=== PATIENT | female | born 1980 | race Caucasian/White ===

== ENCOUNTER → 2020-03-19 12:31 | Outpatient (BNVA) | payer OTHER, SELFPAY | PROVIDERS: PCP Nurse Practitioner Family; Visit Provider Surgery | DX: Z76.89 Persons encountering health services in other specified circumstances (principal) ==

== ENCOUNTER → 2020-03-19 12:31 | Outpatient (BNVA) | payer OTHER, SELFPAY | PROVIDERS: PCP Nurse Practitioner Family; Visit Provider Surgery ==

== ENCOUNTER → 2020-04-10 10:17 | Outpatient (BNVA) | payer OTHER, SELFPAY | PROVIDERS: PCP Nurse Practitioner Family; Visit Provider Surgery ==

== ENCOUNTER 2020-05-01 10:15 | Outpatient (REF) | payer OTHER, SELFPAY ==
[2020-05-03 15:12] LABS: H Pylori Breath Test NOT DETECTED (NOT DETECTED)
== END 2020-05-01 10:16 | disposition home or self-care (01) ==
LOC: HO.LNP 10:15
PROVIDERS: PCP Nurse Practitioner Family; Visit Provider Surgery
DX: Z01.818 Encounter for other preprocedural examination (principal); E66.01 Morbid (severe) obesity due to excess calories; R06.02 Shortness of breath; Z71.3 Dietary counseling and surveillance; Z68.41 Body mass index [BMI] 40.0-44.9, adult; Z79.899 Other long term (current) drug therapy; Z11.0 Encounter for screening for intestinal infectious diseases
CPT/HCPCS: 83013

== ENCOUNTER 2020-05-14 13:56 | Outpatient (REF) | payer OTHER, SELFPAY ==
--- NOTE | ~2020-05-14 | XR_ITS ---
EXAMINATION: XR CHEST CLINICAL INFORMATION: Shortness of breath COMPARISON: None TECHNIQUE: 2 views of the chest were obtained. FINDINGS: No significant abnormality is noted involving the heart, lungs, mediastinum, bony thorax or soft tissues. XR/XR chest 2V IMPRESSION: Unremarkable examination.
--- NOTE | 2020-05-14 14:07 | ECG_ITS ---
Test Reason : R06.02 SOB Blood Pressure : / mmHG Vent. Rate : 072 BPM Atrial Rate : 072 BPM P-R Int : 142 ms QRS Dur : 072 ms QT Int : 396 ms P-R-T Axes : 047 018 016 degrees QTc Int : 433 ms Normal sinus rhythm Low voltage QRS Borderline ECG No previous ECGs available Referred By: Samantha Nolasco Electronically Signed By:MIRNA ZAMAN
[2020-05-14 15:15] LABS: Basophils Percent Auto 0.2 % (0-2); MANUAL DIFF FLAG SCAN; PLT CLUMP 1; SCAN SMEAR FLAG 1
[2020-05-14 15:17] LABS: Eosinophils Absolute Auto 0.1 X10*3/uL (0.0-0.4); Eosinophils Percent Auto 1.5 % (0-4); Hematocrit 40.5 % (37-47); Imm Gran Abs Auto 0.03 X10*3/uL (0.00-0.03); Imm Gran Pct Auto 0.3 % (0.0-0.4); Lymphocytes Absolute Auto 2.2 X10*3/uL (1.2-4.9); Lymphocytes Percent Auto 24.3 % (20-40); Mean Corpuscular HGB Conc 34.6 g/dl (31.0-35.0); Mean Corpuscular Hemoglobin 30.3 pg (27.0-33.0); Mean Corpuscular Volume 87.7 fL (80-98); Mean Platelet Volume 10.5 fL (9.4-12.3); Monocytes Absolute Auto 0.5 X10*3/uL (0.1-1.2); Monocytes Percent Auto 5.6 % (2-11); Neutrophils Absolute Auto 6.1 X10*3/uL (2.0-8.3); Neutrophils Percent Auto 68.1 % (45-73); Platelet Count 287 X10*3/uL (160-400); Red Blood Count 4.62 X10*6/uL (4.20-5.50); Red Cell Distribution Width 12.9 % (11.0-16.0); White Blood Count 8.9 X10*3/uL (4.8-10.8)
[2020-05-14 15:19] LABS: Estimated Average Glucose 134 mg/dL; Hemoglobin A1c % 6.3 %
[2020-05-14 15:44] LABS: SLIDE REVIEW VERIFIED
[2020-05-14 16:09] LABS: Thyroid Stimulating Hormone 0.93 uIU/mL (0.32-4.0); Vitamin D 25-OH Total 22.8 ng/mL (>30)
[2020-05-14 16:13] LABS: Vitamin B12 949 pg/mL (200-900)
[2020-05-14 16:16] LABS: Alanine Aminotransferase 21 U/L (0-31); Albumin Level 4.4 g/dL (3.5-5.0); Alkaline Phosphatase 70 U/L (39-117); Anion Gap 17 (12-20); Aspartate Amino Transferase 21 U/L (5-31); Blood Urea Nitrogen 13 mg/dL (9-16); C Reactive Protein 1.87 mg/dL (< or = 0.50); Calcium 8.9 mg/dL (8.4-10.2); Carbon Dioxide 24 mmol/L (22-29); Chloride 102 mmol/L (96-108); Cholesterol 128 mg/dL; Estimated Glomerular Filt Rate > 60; Glucose Fasting 104 mg/dL (60-99); HDL Cholesterol 42 mg/dL; Iron 77 mcg/dL (30-160); LDL Cholesterol Calculated 74 mg/dl; Percent Iron Saturation 23 % (15-50); Sodium 139 mmol/L (135-145); Total Iron Binding Capacity 330 mcg/dL (228-428); Total Protein 7.4 g/dL (6.5-8.0); Triglycerides 64 mg/dL; Unsaturated Iron Binding 253 ug/dL
[2020-05-14 16:21] LABS: Bilirubin Total 0.5 mg/dL (0.0-1.0)
[2020-05-15 18:11] LABS: Calcium (PTHI) 9.3 mg/dL (8.6-10.2); PTHI 39 pg/mL (14-64)
[2020-05-17 05:41] LABS: Zinc 77 mcg/dL (60-130)
[2020-05-19 10:12] LABS: Vitamin A 35 mcg/dL (38-98)
[2020-05-19 12:12] LABS: Vitamin B1 <6 nmol/L (8-30)
== END 2020-05-14 13:57 | disposition home or self-care (01) ==
LOC: HO.LAB 13:56
PROVIDERS: PCP Nurse Practitioner Family; Visit Provider Surgery
DX: Z01.818 Encounter for other preprocedural examination (principal); K91.2 Postsurgical malabsorption, not elsewhere classified; R06.02 Shortness of breath; Z90.3 Acquired absence of stomach [part of]
CPT/HCPCS: 36415; 71046; 80053; 80061; 82306; 82607; 83036; 83540; 83970; 84425; 84443; 84590; 84630; 85025; 86140; 93005

== ENCOUNTER → 2020-05-15 08:06 | Outpatient (BNVA) | payer OTHER, SELFPAY | PROVIDERS: PCP Nurse Practitioner Family; Visit Provider Surgery ==

== ENCOUNTER → 2020-05-28 08:08 | Outpatient (BNVA) | payer OTHER, SELFPAY | PROVIDERS: PCP Nurse Practitioner Family; Visit Provider Dietitian, Registered | DX: E66.01 Morbid (severe) obesity due to excess calories (principal); Z68.41 Body mass index [BMI] 40.0-44.9, adult | CPT/HCPCS: 97802 ==

== ENCOUNTER → 2020-06-13 15:31 | Outpatient (BNVA) | payer OTHER, SELFPAY | PROVIDERS: PCP Nurse Practitioner Family; Visit Provider Surgery ==

== ENCOUNTER 2020-07-02 09:31 | Outpatient (REF) | payer OTHER, SELFPAY ==
[2020-07-07 06:41] LABS: Vitamin B1 21 nmol/L (8-30)
[2020-07-08 18:02] LABS: Vitamin A 59 mcg/dL (38-98)
== END 2020-07-02 09:32 | disposition home or self-care (01) ==
LOC: HO.LAB 09:31
PROVIDERS: PCP Nurse Practitioner Family; Visit Provider Surgery
DX: Z01.818 Encounter for other preprocedural examination (principal); E51.9 Thiamine deficiency, unspecified
CPT/HCPCS: 36415; 84425; 84590

== ENCOUNTER → 2020-07-04 14:00 | Outpatient (BNVA) | payer OTHER, SELFPAY | PROVIDERS: PCP Nurse Practitioner Family; Visit Provider Surgery ==

== ENCOUNTER → 2020-07-24 13:39 | Outpatient (BNVA) | payer OTHER, SELFPAY | PROVIDERS: PCP Nurse Practitioner Family; Visit Provider Surgery ==

== ENCOUNTER → 2020-08-21 14:48 | Outpatient (BNVA) | payer OTHER, SELFPAY | PROVIDERS: PCP Nurse Practitioner Family; Visit Provider Surgery ==

== ENCOUNTER → 2020-09-19 13:44 | Outpatient (BNVA) | payer OTHER, SELFPAY | PROVIDERS: PCP Nurse Practitioner Family; Visit Provider Physician Assistant ==

== ENCOUNTER → 2020-09-23 14:55 | Outpatient (BNVA) | payer OTHER, SELFPAY | PROVIDERS: PCP Nurse Practitioner Family; Visit Provider Surgery ==

== ENCOUNTER 2020-10-08 08:17 | Day surgery (SDC) | payer OTHER, SELFPAY ==
--- NOTE | 2020-09-23 15:40 | ECG_ITS ---
Test Reason : SOB Blood Pressure : / mmHG Vent. Rate : 066 BPM Atrial Rate : 066 BPM P-R Int : 148 ms QRS Dur : 080 ms QT Int : 394 ms P-R-T Axes : 042 026 031 degrees QTc Int : 413 ms Normal sinus rhythm Normal ECG When compared with ECG of 14-MAY-2020 14:24, No significant change was found Referred By: Samantha Nolasco Electronically Signed By:Paramjit Theodore
[2020-09-23 16:18] LABS: MANUAL DIFF FLAG NO
[2020-09-23 16:38] LABS: Basophils Percent Auto 0.1 % (0-2); Eosinophils Absolute Auto 0.1 X10*3/uL (0.0-0.4); Eosinophils Percent Auto 0.6 % (0-4); Hemoglobin 14.4 g/dl (12.0-16.0); Imm Gran Abs Auto 0.04 X10*3/uL (0.00-0.03); Imm Gran Pct Auto 0.4 % (0.0-0.4); Lymphocytes Absolute Auto 2.7 X10*3/uL (1.2-4.9); Lymphocytes Percent Auto 24.4 % (20-40); Mean Corpuscular HGB Conc 35.1 g/dl (31.0-35.0); Mean Corpuscular Hemoglobin 31.5 pg (27.0-33.0); Mean Corpuscular Volume 89.7 fL (80-98); Mean Platelet Volume 9.7 fL (9.4-12.3); Monocytes Absolute Auto 0.6 X10*3/uL (0.1-1.2); Monocytes Percent Auto 5.1 % (2-11); Neutrophils Absolute Auto 7.6 X10*3/uL (2.0-8.3); Neutrophils Percent Auto 69.4 % (45-73); Platelet Count 326 X10*3/uL (160-400); Red Blood Count 4.57 X10*6/uL (4.20-5.50); White Blood Count 10.9 X10*3/uL (4.8-10.8)
[2020-09-23 16:40] LABS: INTERNATIONAL NORM RATIO 1.1 (0.9-1.1)
[2020-09-23 16:43] LABS: Partial Thromboplastin Time 42.8 SEC (24.1-38.0)
[2020-09-23 16:50] LABS: Albumin Level 4.3 g/dL (3.5-5.0); Anion Gap 12 (12-20); Blood Urea Nitrogen 18 mg/dL (9-16); Calcium 9.8 mg/dL (8.4-10.2); Carbon Dioxide 25 mmol/L (22-29); Chloride 102 mmol/L (96-108); Estimated Glomerular Filt Rate > 60; Glucose Random 93 mg/dL (60-115); Potassium 4.1 mmol/L (3.3-5.1); Sodium 135 mmol/L (135-145)
[2020-09-23 17:02] LABS: Glucose Urine UA NEG (NEG); Leukocyte Esterase Urine NEG (NEG); Nitrite Urine NEG (NEG); PH 5.5 (5.0-8.0); Specific Gravity - Urine 1.025 (1.005-1.025); UACC Culture Trigger NO; Urine Blood TRACE (NEG); Urine Ketones NEG (NEG); Urine Protein NEG (NEG-TRACE)
[2020-09-23 17:07] LABS: Appearance Urine CLEAR; Color Urine YELLOW
[2020-09-23 17:08] LABS: UPreg QC Valid YES; Urine Pregnancy NEGATIVE (NEGATIVE)
[2020-09-23 17:14] LABS: Bacteria Urine 1+ /LPF; RBC Urine 0-2 /HPF (0); Squamous Epithelial Cell Urine 1+ /LPF; WBC Urine 0 /HPF (0-4)
--- NOTE | 2020-10-07 08:25 | HO.ANESPROP2 ---
Documented by User: Aliyah Robert NP 10/07/20 08:26 HPI - Anesthesia Eval Consult details Narrative: 40yo F for Gastrectomy Sleeve, EGD, Possible Diaphragmatic Hernia, Possible Ventral Hernia, Poss Open PMFSH Active Problems Active Problems: All Active Problems (Updated 10/03/20 @ 11:44 by Eden Pierce) BMI 40.0-44.9, adult (Acute) Pre-op evaluation (Acute) Shortness of breath (Acute) Adjustment disorder, unspecified (Acute) Vitamin A deficiency (Acute) Vitamin B1 deficiency (Acute) BMI 39.0-39.9,adult (Acute) Obesity (Acute) BMI 38.0-38.9,adult (Acute) Morbid obesity (Acute) Past Medical History Medical History COVID-19 vaccine series completed History of cardiac murmur as a child Hx MRSA infection Morbid obesity Seasonal asthma Family History Family History Mother Diabetes Hypertension Father Heart attack Hypertension Hyperlipidemia Brother Hypertension Brother Hypertension Son No problems noted. Daughter No problems noted. Paternal Aunt Breast cancer Paternal Grandfather Pancreatic cancer Maternal Grandmother Diabetes Surgical History Surgical History History of ankle surgery Hx of section Social History Social History (Updated 10/03/20 @ 11:39 by Eden Pierce, RN) Alcohol intake: current Alcohol intake frequency: holidays/special occasions only Patient Tobacco Use Status: Former Tobacco user Quit Date: 2018 Tobacco use type: Cigarette Advance Directives: No Advance Directives Information Provided: Yes Meds Allergies Allergy/AdvReac Type Severity Reaction Status Date / Time amoxicillin Allergy Severe Anaphylaxis Verified 10/08/20 09:03 Penicillins Allergy Severe Anaphylaxis Verified 10/08/20 09:03 Home Medications Medication Instructions Recorded Confirmed Last Taken Type albuterol sulfate 90 mcg/actuation 2 inh INHALATION Q4-6H PRN g 05/01/20 10/03/20 Unknown History aerosol inhaler multivitamin 1 tab PO DAILY 05/01/20 10/03/20 Unknown History Exam Exam Date and Time: October 07, 2020 0879 Pertinent Lab Results Pertinent Lab Results: Laboratory Tests 09/23/20 09/23/2021 15:00 15:42 15:42 WBC 10.9 H RBC 4.57 Hgb 14.4 Hct 41.0 MCV 89.7 MCH 31.5 MCHC 35.1 H RDW 13.0 Plt Count 326 MPV 9.7 Immature Gran % (Auto) 0.4 Neut % (Auto) 69.4 Lymph % (Auto) 24.4 [place] % (Auto) 5.1 Eos % (Auto) 0.6 Baso % (Auto) 0.1 Lymph # (Auto) 2.7 [place] # (Auto) 0.6 Eos # (Auto) 0.1 Baso # (Auto) 0.0 Abs Immat Gran (auto) 0.04 H Absolute Neuts (auto) 7.6 Absolute Nucleated RBC 0.000 Nucleated RBC % (auto) 0.0 PT 13.0 INR 1.1 APTT 42.8 H Sodium 135 Potassium 4.1 Chloride 102 Carbon Dioxide 25 Anion Gap 12 BUN 18 H Creatinine 0.74 Estim Creat Clear Calc TNP Estimated GFR > 60 Random Glucose 93 Calcium 9.8 D Albumin 4.3 Urine Color Urine Appearance Urine pH Ur Specific [place] Urine Protein Urine Glucose (UA) Urine Ketones Urine Blood Urine Nitrite Ur Leukocyte Esterase Urine RBC Urine WBC Ur Squamous Epith Cells Urine Bacteria Urine Test Blood Type Antibody Screen 09/23/20 09/23/20 09/23/20 15:43 15:43 15:47 WBC RBC Hgb Hct MCV MCH MCHC RDW Plt Count MPV Immature Gran % (Auto) Neut % (Auto) Lymph % (Auto) [place] % (Auto) Eos % (Auto) Baso % (Auto) Lymph # (Auto) [place] # (Auto) Eos # (Auto) Baso # (Auto) Abs Immat Gran (auto) Absolute Neuts (auto) Absolute Nucleated RBC Nucleated RBC % (auto) PT INR APTT Sodium Potassium Chloride Carbon Dioxide Anion Gap BUN Creatinine Estim Creat Clear Calc Estimated GFR Random Glucose Calcium Albumin Urine Color YELLOW Urine Appearance CLEAR Urine pH 5.5 Ur Specific [place] 1.025 Urine Protein NEG Urine Glucose (UA) NEG Urine Ketones NEG Urine Blood TRACE Urine Nitrite NEG Ur Leukocyte Esterase NEG Urine RBC 0-2 Urine WBC 0 Ur Squamous Epith Cells 1+ Urine Bacteria 1+ Urine Test NEGATIVE Blood Type A Positive Antibody Screen NEGATIVE Narrative Narrative: EKG 09/2020 Vent. Rate : 066 BPM ? ? Atrial Rate : 066 BPM ?? P-R Int : 148 ms? QRS Dur : 080 ms ? ? QT Int : 394 ms ? ? ? P-R-T Axes : 042 026 031 degrees ?? QTc Int : 413 ms ? Normal sinus rhythm Normal ECG When compared with ECG of 14-MAY-2020 14:24, No significant change was found Assessment and Plan Assessment Anesthesia Assessment: Chart Reviewed Documented by User: Norberto Del Rio MD 10/08/20 09:27 [facility] Past Medical History Medical History COVID-19 vaccine series completed History of cardiac murmur as a child Hx MRSA infection Morbid obesity Seasonal asthma Family History Family History Mother Diabetes Hypertension Father Heart attack Hypertension Hyperlipidemia Brother Hypertension Brother Hypertension Son No problems noted. Daughter No problems noted. Paternal Aunt Breast cancer Paternal Grandfather Pancreatic cancer Maternal Grandmother Diabetes Surgical History Surgical History History of ankle surgery Hx of section Social History Social History (Updated 10/03/20 @ 11:39 by Eden Pierce, JAS) Alcohol intake: current Alcohol intake frequency: holidays/special occasions only Patient Tobacco Use Status: Former Tobacco user Quit Date: 2018 Tobacco use type: Cigarette Advance Directives: No Advance Directives Information Provided: Yes Meds Allergies Allergy/AdvReac Type Severity Reaction Status Date / Time amoxicillin Allergy Severe Anaphylaxis Verified 10/08/20 09:03 Penicillins Allergy Severe Anaphylaxis Verified 10/08/20 09:03 Home Medications Medication Instructions Recorded Confirmed Last Taken Type albuterol sulfate 90 mcg/actuation 2 inh INHALATION Q4-6H PRN g 05/01/20 10/03/20 Unknown History aerosol inhaler multivitamin 1 tab PO DAILY 05/01/20 10/03/20 Unknown History Exam Airway Mallampati Class: II TM Dist: >3cm Neck ROM: Full
--- NOTE | 2020-10-07 12:02 | MHC.SHP ---
Pre-Procedural Eval Section A Date of Service: 10/07/20 Section B Chief Complaint: obesity Allergies: Allergies Allergy/AdvReac Type Severity Reaction Status Date / Time amoxicillin Allergy Severe Anaphylaxis Verified 10/06/20 10:08 Penicillins Allergy Severe Anaphylaxis Verified 10/06/20 10:09 Plan I have reviewed the history and physical and performed a pertinent physical examination on my patient. No changes have occurred unless specified.
[2020-10-08] VITALS (13 sets, daily range): BP systolic 116–136; BP diastolic 53–89; PULSE 68–83; RESP 16–18; TEMP 36.1–36.6; O2SAT 94–100; BMI 39.1
[2020-10-08 09:27] LABS: UPreg QC Valid YES; Urine Pregnancy NEGATIVE (NEGATIVE)
[2020-10-08 09:39] LABS: COVID-19 Test Negative (Negative)
[2020-10-08] MEDS: Lactated Ringers 1,000 ML 100 ML IVCONT ×3 (09:40→22:18)
--- NOTE | 2020-10-08 12:48 | P.BOP_ITS ---
Brief Operative Note Date of Service: 10/08/20 Pre-op diagnosis: Class 2 obesity, BMI 38.6 Post-op diagnosis: other (Same and hiatal hernia) Procedure: Laparoscopic sleeve gastrectomy, hiatal hernia repair, intraoperative endoscopy, and Stuart block Implants: covidien taqueria Surgeon: Samantha Nolasco MD Anesthesia: GETA Was an Second Officer used for this Procedure?: No Estimated blood loss (mL): 5 Pathology: other (Partial gastrectomy) Condition: stable Disposition: PACU
--- NOTE | 2020-10-08 12:49 | P.OP_ITS ---
Operative Note Operative Note Date of Service: 10/08/20 Narrative: Patient was brought into the operating room and placed on the operating room table in the supine position. General anesthesia was induced. Normal DVT prophylaxis was instituted and the patient received 2 grams of cefotetan preoperatively. The abdomen was then prepped and draped in the normal sterile fashion. A safety time-out was performed. A mixture of 1% lidocaine with epinephrine and ?% Marcaine plain was used to an esthetize the planned incision site in the left upper quadrant. A #11 scalpel was used to make a 5 mm left upper quadrant transverse incision through which a veress needle was placed. Three pops were heard going through the fascia. A saline drop test was used to confirm that the veress needle was intraabdominal. An optiview technique was then used to place a 5mm port in the left upper quadrant. A 5 mm 30 degree laproscope was then placed through this port and the abdominal cavity was surveyed and was normal. The patient was placed in reverse Trendelenburg positioning. A moisés liver retractor was then placed in the subxyphoid position and it was used to hold up the left lobe of the liver to the abdominal wall. This was secured to the bed using the liver retractor key. A MARYJO block was then performed for pain control on the right side of the abdomen. A 5 mm port was placed in the right upper quadrant near the falciform ligament. A 12 mm port was then placed in the mid epigastrium. One additional 5 mm port was placed in the left upper quadrant just to the left of the placement of the first port. I then performed a MARYJO block on the left side of the abdomen. I then removed the epigastric fat pad; there was a small anterior hiatal hernia noted. I reapproximated the left and right crura with a total of 2 stitches of 2-0 ethibond and a laparoscopic knot pusher. There was no residual hiatal hernia. I then opened up the angle of His. We then gained entry into the lesser sac about 4-5 cm from the pylorus. I had anesthesia place a 34 [place] orogastric tube into the distal antrum to use as a sizing tool for gastric pouch size. I divided the short gastric vessels up to the angle of His. We then started the creation of the gastric pouch by firing a 60 mm purple load endostapler up the stomach about 4-5 cm from the pylorus. We completed the creation of the gastric pouch using a total of 4 firings of a 60 mm purple load stapler. We had anesthesia remove the orogastric tube, then we clamped across the distal antrum using a fired 60 mm endostapler. We flattened the patient and then instilled normal saline surrounding the newly created staple line. I then performed an on-table endoscopy. I passed the gastroscopy into the posterior oropharynx and down the esophagus evaluating the esophageal mucosa which was normal. There was no evidence of hiatal hernia. I passed the gastroscope into the gastric pouch and insufflated the gastric pouch. There was healthy pink mucosa and no evidence of active bleeding. There was no evidence of leak on laparoscopy. I desufflated the gastric pouch and removed the endoscope. I removed the endostapler from the abdomen and suctioned the fluid from the left upper quadrant. I then removed the partial gastrectomy specimen through the epigastric 12 mm port site. I reapproximated the 12 mm port using a 0 maxon suture with a laparoscopic suture passer. I instilled local anesthetic into the fascial closure site and tied the suture down at a pressure of 8-10 mm of Hg. There was no residual fascial defect. We removed the liver retractor and the left upper quadrant 5 mm ports under direct visualization. There was no evidence of any active bleeding. I desufflated the abdomen through the last remaining port and removed the laparoscope and 5 mm port. We reapproximated all incisions with a 4-0 monocryl subcuticular stitch. We cleaned and dried the abdominal skin and applied dermabond skin glue. All count were correct at the end of the case. The patient was awake and in stable condition prior to extubation and transfer to the recovery room.
--- NOTE | 2020-10-08 12:50 | PM.DS ---
DS: Providers Provider Date of Service: 10/09/20 Date of admission: 10/08/2020 Date of discharge: 10/09/20 Primary care physician: Vashti Mata NP Admitting clinician: Samantha Nolasco Attending physician on admission: Samantha Nolasco Attending physician on discharge: Samantha Nolasco Discharging clinician: Samantha Nolasco DS: Diagnosis Discharge Diagnosis (1) Status post laparoscopic sleeve gastrectomy: Status: Acute (2) History of repair of hiatal hernia: Status: Acute (3) Class 2 obesity: Status: Acute DS: Medications Discharge Medications Home Medications: Home Medications Medication Instructions Recorded Confirmed albuterol sulfate 90 mcg/actuation 2 inh INHALATION Q4-6H PRN g 05/01/20 10/03/20 aerosol inhaler multivitamin 1 tab PO DAILY 05/01/20 10/03/20 Previous Rx's Medication Instructions Recorded acetaminophen 500 mg tablet 1,000 mg PO Q6H PRN #30 tab 09/23/20 (Tylenol Extra Strength) docusate sodium 100 mg capsule 100 mg PO BID #30 cap 09/23/20 (Colace) famotidine 20 mg tablet (Pepcid AC) 20 mg PO DAILY #30 tab 09/23/20 ondansetron HCl 4 mg tablet 4 mg PO Q6H PRN #30 tab 09/23/20 (Zofran) phentermine 37.5 mg capsule 37.5 mg PO DAILY #14 cap 09/23/20 simethicone 80 mg chewable tablet 80 mg PO TID-QID PRN #30 tab 09/23/20 (Gas Relief (simethicone)) DS: Summary Hospital Course Hospital Course: This is a 40-year-old lady who was admitted through same-day surgery on 10/08/2020 and underwent a laparoscopic sleeve gastrectomy with hiatal hernia repair on eventfully. She did well and was transferred to the surgical floor overnight. She was started on a stage II bariatric diet which she tolerated well. On postoperative day 1. The patient's vital signs and blood work were within normal range for postoperative day 1. Patient was advanced to stage III diet which she tolerated well and she was discharged home. Time spent discussing smoking cessation with patient: 3 to 10 minutes Status at Discharge Functional status at discharge: independent ambulation Overall status at discharge: patient is back to baseline Time Spent with Patient Time attestation: Total time spent providing and/or coordinating discharge services: Discharge coordination time: Less than 30 minutes Quality: Stroke Does the patient have a stroke diagnosis?: No Physical Exam Vital Signs: Vital Signs: Last Vital Signs Temp 97.0 F 10/08/20 12:45 Pulse 76 10/08/20 12:45 Resp 16 10/08/20 12:45 BP 130/77 10/08/20 12:45 Pulse Ox 99 10/08/20 12:45 Body Mass Index 39.1 DS: Data Data Completed and Pending Pending studies at discharge: Pending at discharge 10/08/20 12:14 Surgical [PTH] Routine Labs on day of discharge: Laboratory Results - last 24 hr 10/08/20 10/08/20 09:10 09:10 Urine Test NEGATIVE COVID-19 (MAUREEN) Negative COVID-19 Clin Com See Note Discharge Plan Discharge Patient Disposition: Home, Self-Care Referrals: Vashti Mata TRUCK SAFETY INSPECTOR [Primary Care Provider] - 1 Week Discharge Medications: Continued albuterol sulfate 90 mcg/actuation HFA aerosol inhaler 2 inh inhalation Q4-6H PRN (Reason: shortness of breath or wheezing) RF: 0 multivitamin Tablet 1 tab PO DAILY RF: 0 phentermine 37.5 mg capsule 37.5 mg PO DAILY Qty: 14 RF: 0 acetaminophen [Tylenol Extra Strength] 500 mg tablet 1,000 mg PO Q6H PRN (Reason: pain) Qty: 30 RF: 1 famotidine [Pepcid AC] 20 mg tablet 20 mg PO DAILY Qty: 30 RF: 1 simethicone [Gas Relief (simethicone)] 80 mg tablet,chewable 80 mg PO TID-QID PRN (Reason: abdominal distention) Qty: 30 RF: 1 ondansetron HCl [Zofran] 4 mg tablet 4 mg PO Q6H PRN (Reason: nausea and vomiting) Qty: 30 RF: 1 docusate sodium [Colace] 100 mg capsule 100 mg PO BID Qty: 30 RF: 1 Discharge Orders: Discharge Order (Routine); Ordered 10/09/20 Ordered By: Samantha Nolasco Activity Restrictions/Additional Instructions: No lifting greater than 5 lbs for the next 4 weeks. No driving within 24 hours of taking narcotic pain medications. If you do not move your bowels in the next 2 days, please take milk of magnesia over the counter or MiraLax. Please follow the post op diet and do not advance your diet until you are seen in the office in about 2 weeks. Please walk around your home every hour or two to prevent blood clots from forming in your legs. You do not need to wake from sleeping to walk. Please sleep in a bed or couch to prevent kinking at the hips and knees. Please take your incentive spirometer (your lung fuel cell repairer) home with you and use it for the next few days to prevent pneumonias. You may shower, no hot tubs, baths or swimming pools. Please call the office with any questions or concerns such as increasing abdominal pain, fever, chills, shortness of breath, chest pain, leg pain or swelling, or redness or drainage from your incisions. Please stay on stage 3 diet which includes sugar free clear liquids such as ice pops and jello and broth and crystal light. Avoid all carbonation. Please drink 2-3 protein shakes with at least 20-30 grams of protein daily or 2 of the celebrate 4:1 shakes which can be purchased in our office in addition to 1 other protein shake of your choice. celebrate shakes have all of the bariatric vitamins you need if you consume these shakes. If you are drinking other protein shakes, you will need to order the bariatric vitamin Opurity chewable online, or use the celebrate bariatric vitamin and an additional celebrate calcium daily which will provide all the vitamins you need. You may take the bariatric capsule vitamin in about 1 month. Please make sure you are consuming at least 40- 60 ounces of water in addition to your 2-3 protein shakes daily. You do not need to use the medicine cups to drink year shakes or water following discharge. Just drink slowly in order to ensure that she consume all of your liquids for the day. The medicine cups were only to teach you to drink slowly. They are not required at home. Do not hesitate to contact the office with any questions.
--- NOTE | 2020-10-08 12:54 | P.PNGS_ITS ---
Subjective Subjective Date of Service: 10/09/20 Interval history: This is a 40-year-old lady on postoperative day 1. Status post laparoscopic sleeve gastrectomy and hiatal hernia repair doing well. Patient is tolerating stage III diet without difficulty. She has been up ambulating and us ing incentive spirometer. Vital signs and postoperative day 1. Blood work were within normal limits for postoperative day 1. Patient denies nausea or vomiting. Physical Exam Vital Signs: Vital Signs: Last Vital Signs Temp 97.0 F 10/08/20 12:45 Pulse 77 10/08/20 12:50 Resp 16 10/08/20 12:50 BP 136/82 10/08/20 12:50 Pulse Ox 100 10/08/20 12:50 Body Mass Index 39.1 GI: Other: Abdomen is soft nondistended mild appropriate incisional tenderness. Incisions are clean dry intact with Dermabond in place. Extrem: Other: Bilateral lower extremities are warm well-perfused without edema or tenderness to palpation. Procedures Date of Service Date of Service: 10/09/20 Progress Note: A&P Assessment and plan (1) Status post laparoscopic sleeve gastrectomy: Status: Acute Assessment and Plan: This is a 40-year-old lady on postoperative day 1. Status post laparoscopic sleeve gastrectomy and hiatal hernia repair doing well without any difficulty. Patient is tolerating stage III diet and she will be discharged home to continue stage II diet and follow up with me again in the office in 2 weeks time frame. (2) History of repair of hiatal hernia: Status: Acute Fall Risk Details Current Medications: Current Medications Generic Name Dose Route Start Last Admin Trade Name Freq PRN Reason Stop Dose Admin Albuterol Sulfate 2.5 mg 10/08/20 08:56 Albuterol Sulfate (0.083%) 2.5 Mg/3 Ml Vial.Neb INHALE ONCE PRN Shortness of Breath/Wheezing Fentanyl 50 mcg 10/08/20 09:28 Fentanyl Citrate/Pf 100 Mcg/2 Ml Vial IVPUSH Q5M PRN Pain, Severe (Pain Scale 7-10) Protocol Lactated Ringer's 1,000 mls @ 100 mls/hr 10/08/20 09:00 10/08/20 09:40 Lr IVCONT 100 mls/hr .Q10H LEIGH ANN Administration Oxycodone HCl 10 mg 08/18/21 09:28 Oxycodone Hcl Immed Release 5 Mg Tablet PO ONCE PRN Pain, Severe (Pain Scale 7-10) Time Spent With Patient Time: Total time spent is greater than 50% in coordination of care (as documented) at patient's floor/unit and/or counseling patient: Time with patient: less than 15 minutes Quality Stroke Does the patient have a stroke diagnosis?: No VTE Prior VTE?: No VTE Risk Level:: Surgical - moderate VTE Device Contraindication: N/A - Device Ordered VTE Drug Contraindication: Treatment Not Indicated
[2020-10-08] MEDS: Metoclopramide HCl 10 MG/2 ML VIAL IVPUSH ×2 (14:01→22:20)
[2020-10-08] MEDS: HYDROmorphone HCl 0.5 MG/0.5 ML SYRINGE IVPUSH ×2 (14:15→20:03)
[2020-10-08] MEDS: Famotidine/PF 20 MG/2 ML VIAL IVPUSH (20:03)
[2020-10-08] MEDS: ondansetron HCL 4 MG/2 ML VIAL IVPUSH (20:03)
[2020-10-08] MEDS: 0.9 % Sodium Chloride Flush 3 ML SYRINGE IVFLUSH (20:04)
[2020-10-08] MEDS: Clindamycin Phosphate/D5W 900 MG/50 ML PIGGYBACK 50 MG IV (22:32)
[2020-10-09] VITALS: BP 124/77; PULSE 76; RESP 16; TEMP 36.9; O2SAT 96
[2020-10-09] MEDS: Metoclopramide HCl 10 MG/2 ML VIAL IVPUSH (03:48)
[2020-10-09 04:00] VITALS: BP 122/66; PULSE 60; RESP 16; TEMP 36.7; O2SAT 98
[2020-10-09] MEDS: HYDROmorphone HCl 0.5 MG/0.5 ML SYRINGE IVPUSH (04:03)
[2020-10-09] MEDS: ondansetron HCL 4 MG/2 ML VIAL IVPUSH (04:59)
[2020-10-09 06:35] LABS: Hematocrit 36.8 % (37-47); Hemoglobin 12.8 g/dl (12.0-16.0); Mean Corpuscular HGB Conc 34.8 g/dl (31.0-35.0); Mean Corpuscular Hemoglobin 31.6 pg (27.0-33.0); Mean Corpuscular Volume 90.9 fL (80-98); Mean Platelet Volume 9.7 fL (9.4-12.3); Platelet Count 329 X10*3/uL (160-400); Red Blood Count 4.05 X10*6/uL (4.20-5.50); Red Cell Distribution Width 12.7 % (11.0-16.0); White Blood Count 12.6 X10*3/uL (4.8-10.8)
[2020-10-09 07:07] LABS: Anion Gap 13 (12-20); Blood Urea Nitrogen 8 mg/dL (9-16); Calcium 8.7 mg/dL (8.4-10.2); Carbon Dioxide 25 mmol/L (22-29); Chloride 104 mmol/L (96-108); Creatinine Clr Calc Pharmacy 129.5; Estimated Glomerular Filt Rate > 60; Glucose Random 116 mg/dL (60-115); Potassium 4.4 mmol/L (3.3-5.1); Sodium 138 mmol/L (135-145)
[2020-10-09] MEDS: Famotidine/PF 20 MG/2 ML VIAL IVPUSH (07:14)
[2020-10-09 07:23] VITALS: BP 123/66; PULSE 72; RESP 16; TEMP 36.9; O2SAT 99
--- NOTE | 2020-10-09 09:14 | HO.POSTANES ---
Post Anesthesia Evaluation Post Anesthesia Evaluation Vital Signs: Vital Signs Temp Pulse Resp BP Pulse Ox 10/09/20 07:23 98.4 F 72 16 123/66 99 10/09/20 04:00 98.0 F 60 16 122/66 98 10/09/20 00:00 98.5 F 76 16 124/77 96 Anesthesia: General Endotracheal-GETA Mental Status: Awake Pain Control: Satisfactory Nausea/Vomiting: None Hydration: Adequate Anesthesia-Related Issues: No Anes. Related Issues
[2020-10-09] MEDS: oxyCODONE HCl Immed Release 5 MG TABLET PO (09:39)
--- NOTE | 2020-10-09 09:50 | MHC.CM.PN ---
EMR REVIEWED, PT ADMITTED S/P LAP SLEEVE GASTRECTOMY AND HIATAL HERNIA REPAIR, CM MET W/PT WHO REPORTS SHE LIVES W/HER PARTNER AND ONE CHILD, PT IS INDEPENDENT W/ALL CARE, NO DME AND NO HOME SERVICES, PT VERIFIED PCP AND WAS PROVIDED INFORMATION ON HCP AND DECLINES ASSISTANCE BY CM TO COMPLETE. D/C PLAN:l HOME TODAY SELF-CARE, FAMILY FOR TRANSPORT PCP: RASHEEDA PRADO
== END 2020-10-09 10:13 | disposition home or self-care (01) ==
LOC: HO.SSS 13:05 → HO.S3 15:07
PROVIDERS: Nurse Practitioner; PCP Nurse Practitioner Family; Visit Provider Surgery
PROC: (CPT 43845; principal; 2020-10-08 10:00)
DX: E66.9 Obesity, unspecified (principal); Z68.38 Body mass index [BMI] 38.0-38.9, adult; R06.02 Shortness of breath; Z90.3 Acquired absence of stomach [part of]; Z98.84 Bariatric surgery status; Z98.890 Other specified postprocedural states; J45.909 Unspecified asthma, uncomplicated; Z86.14 Personal history of Methicillin resistant Staphylococcus aureus infection; Z87.891 Personal history of nicotine dependence
CPT/HCPCS: 43775; 36415; 80048; 81001; 81003; 81025; 82040; 85025; 85027; 85610; 85730; 86850; 86900; 86901; 87635; 88307; 88342; 93005; 99024; C1776; J0131; J1100; J1170; J2250; J2370; J2405; J2550; J2765; J3010

== ENCOUNTER → 2020-10-31 13:10 | Outpatient (BNVA) | payer OTHER, SELFPAY | PROVIDERS: PCP Nurse Practitioner Family; Visit Provider Surgery ==

== ENCOUNTER → 2020-12-04 14:51 | Outpatient (BNVA) | payer OTHER, SELFPAY | PROVIDERS: PCP Nurse Practitioner Family; Visit Provider Physician Assistant Surgical ==

== ENCOUNTER → 2020-12-11 09:23 | Outpatient (BNVA) | payer OTHER, SELFPAY | PROVIDERS: PCP Nurse Practitioner Family; Visit Provider Dietitian, Registered | DX: E66.9 Obesity, unspecified (principal); Z68.34 Body mass index [BMI] 34.0-34.9, adult; Z87.891 Personal history of nicotine dependence; Z86.14 Personal history of Methicillin resistant Staphylococcus aureus infection; Z90.3 Acquired absence of stomach [part of]; Z88.1 Allergy status to other antibiotic agents; Z88.0 Allergy status to penicillin | CPT/HCPCS: 97803 ==

== ENCOUNTER → 2021-01-08 11:16 | Outpatient (BNVA) | payer OTHER, SELFPAY | PROVIDERS: PCP Nurse Practitioner Family; Visit Provider Physician Assistant Surgical ==

== ENCOUNTER → 2021-02-05 13:53 | Outpatient (BNVA) | payer OTHER, SELFPAY | PROVIDERS: PCP Nurse Practitioner Family; Visit Provider Physician Assistant Surgical ==

== ENCOUNTER 2021-04-24 09:20 | Outpatient (REF) | payer OTHER, SELFPAY ==
[2021-04-24 11:47] LABS: Anion Gap 9 (12-20); Blood Urea Nitrogen 19 mg/dL (9-16); C Reactive Protein 0.68 mg/dL (< or = 0.50); Calcium 9.6 mg/dL (8.4-10.2); Carbon Dioxide 28 mmol/L (22-29); Chloride 106 mmol/L (96-108); Cholesterol 136 mg/dL; Estimated Glomerular Filt Rate > 60; Glucose Random 80 mg/dL (60-115); HDL Cholesterol 47 mg/dL; Iron 149 mcg/dL (30-160); LDL Cholesterol Calculated 79 mg/dl; Percent Iron Saturation 44 % (15-50); Potassium 4.4 mmol/L (3.3-5.1); Sodium 139 mmol/L (135-145); Total Iron Binding Capacity 336 mcg/dL (228-428); Triglycerides 53 mg/dL; Unsaturated Iron Binding 187 ug/dL
[2021-04-24 12:06] LABS: Ferritin 21 ng/mL (10-122); TSH reflex Free T4 1.12 uIU/mL (0.32-4.0); Vitamin D 25-OH Total 32.4 ng/mL (>30)
[2021-04-24 12:14] LABS: Folate 18.4 ng/mL (> or = 4.0); Vitamin B12 739 pg/mL (200-900)
[2021-04-28 07:11] LABS: Zinc 76 mcg/dL (60-130)
[2021-04-30 08:07] LABS: Vitamin B1 8 nmol/L (8-30)
[2021-04-30 10:01] LABS: Vitamin A 40 mcg/dL (38-98)
== END 2021-04-24 09:21 | disposition home or self-care (01) ==
LOC: HO.LAB 09:20
PROVIDERS: PCP Nurse Practitioner Family; Visit Provider Physician Assistant Surgical
DX: E66.9 Obesity, unspecified (principal)
CPT/HCPCS: 36415; 80048; 80061; 82306; 82607; 82728; 82746; 83540; 84425; 84443; 84590; 84630; 86140

== ENCOUNTER → 2021-05-07 08:14 | Outpatient (BNVA) | payer OTHER, SELFPAY | PROVIDERS: PCP Nurse Practitioner Family; Visit Provider Dietitian, Registered | DX: E66.9 Obesity, unspecified (principal); Z68.30 Body mass index [BMI] 30.0-30.9, adult | CPT/HCPCS: 97803 ==